=== PATIENT | male | born 1960 | race Caucasian/White ===

== ENCOUNTER → 2018-08-12 | Outpatient (REF) | LOC: ZLAB.WCH 18:50 | DX: Z01.89 Encounter for other specified special examinations (principal) ==

== ENCOUNTER → 2018-11-03 | Outpatient (REF) | LOC: ZLAB.WCH 09:04 | DX: Z01.89 Encounter for other specified special examinations (principal) ==

== ENCOUNTER → 2019-04-28 | Outpatient (CLI) | payer OTHER ==
--- NOTE | 2019-04-28 11:20 | NUR ---
PATIENT CAME IN SHORT OF BREATH AND AUDIBLE WX. PATIENTS SPO2 WAS 92% HR 102 AND RR 20 PRIOR TO STUDY. PATIENT WAS ABLE TO COMPLETE PRE AND POST SPIROMETRY AND SEEMED TO TOLERATE PROCESS OKAY. PATIENT WAS D/C AND TOLD TO TAKE DAILY RESPIRATORY MEDICATIONS USUAL. KATIE MORIN, HR GENERALIST
== END ==
LOC: COL.PUL 11:01
DX: Z02.71 Encounter for disability determination (principal)